=== PATIENT | male | born 1935 | race Caucasian/White ===

== ENCOUNTER 2021-03-24 08:07 | Inpatient (IN) | payer MEDICARE, OTHER ==
[2021-03-24 09:15] LABS: BASOPHIL 0.3 % (0-2); EOSINOPHIL 0 % (0-7); HCT 43.8 % (42.0-52.0); HGB 14.3 g/dl (13.2-18.0); LYMPHOCYTE 2.5 % (15-48); MCH 28.9 pg (25.0-31.0); MCHC 32.6 g/dL (32.0-36.0); MCV 88.5 fL (78.0-100.0); MONOCYTE 8.1 % (0-12); MPV 10.3 fL (6.0-9.5); NEUTROPHIL 88.4 % (41-80); NRBC 0; PLT 197 K/uL (150-400); RBC 4.95 M/uL (4.70-6.00); RDW 15.9 % (11.5-14.0); WBC 21.5 K/uL (4.0-10.5)
[2021-03-24 09:36] LABS: ALBUMIN 2.9 g/dL (3.4-5.0); BILIRUBIN - TOTAL 0.6 mg/dL (0.2-1.0); BUN/CREAT RATIO (CALC) 15.3 RATIO; CREATININE 5.04 mg/dL (0.67-1.17); GLOBULIN (CALCULATION) 4.5 g/dL; POTASSIUM 4.3 mmol/L (3.5-5.1); TOTAL PROTEIN 7.4 g/dL (6.4-8.2)
[2021-03-24 09:38] LABS: LACTIC ACID 2.2 mmol/L (0.4-1.9)
[2021-03-24 09:50] LABS: BILIRUBIN 1+ mg/dL (NEGATIVE); BLOOD 3+ Ery/uL (NEGATIVE); COLOR RED (YELLOW); GLUCOSE (U) NORMAL (NORMAL); LEUKOCYTES 3+ Leu/uL (NEGATIVE); NITRITE POSITIVE (NEGATIVE); PROTEIN 3+ mg/dL (NEGATIVE); UROBILINOGEN 0.2 mg/dL (0.2-1.0)
[2021-03-24 09:52] LABS: CLARITY CLOUDY (CLEAR)
[2021-03-24 10:04] LABS: BACTERIA 3+; URINARY RBC TNTC; URINARY WBC TNTC
[2021-03-24] MEDS ORDERED: LOPRESSOR50 MG PO (11:47)
[2021-03-24] MEDS ORDERED: KEFLEX250 MG PO (11:47)
[2021-03-24] MEDS ORDERED: PRILOSEC20 MG PO (11:48)
--- NOTE | 2021-03-24 14:09 | NUR ---
03/24/21 Mr. Aranda was unable to participate in an assessment. His daughter, DPO, Monica Sánchez ([phone]) reported the following: Mr. Aranda was in a NH in [place] for 100 days. Ms. Sánchez and her spouse were bringing Mr. Aranda from [place] to their home in [facility]). While driving to the airport, Mr. Aranda had a fall in a bathroom. He was taken to an ED and cleared to fly. They arrived in [place] on 03/22/21. Ms. Sánchez wishes for her father to return to her home. He is current with [facility]. Mr. Aranda has a rw, wc, s.chair, ripadmini, 3in1, and rails on the bed. - [facility] has been notified of the admission via [facility].
--- NOTE | 2021-03-26 12:29 | NUR ---
03/26/21 [facility] was informed on 03/25/21 of patient's transfer to [facility] on 03/24/21.
== END 2021-03-24 22:38 | disposition other institution (70) | DRG 698 ==
LOC: FER 08:07 → FTCU 10:06
PROVIDERS: Emergency Medicine; ADMIT Internal Medicine
DX: T83.511A Infection and inflammatory reaction due to indwelling urethral catheter, initial encounter (principal); A41.9 Sepsis, unspecified organism; N17.9 Acute kidney failure, unspecified; K56.609 Unspecified intestinal obstruction, unspecified as to partial versus complete obstruction; K56.7 Ileus, unspecified; T83.091A Other mechanical complication of indwelling urethral catheter, initial encounter; R33.9 Retention of urine, unspecified; E86.0 Dehydration; I10 Essential (primary) hypertension; Z20.822 Contact with and (suspected) exposure to COVID-19; Z85.51 Personal history of malignant neoplasm of bladder; Z80.3 Family history of malignant neoplasm of breast; Z79.899 Other long term (current) drug therapy; L89.326 Pressure-induced deep tissue damage of left buttock; L89.316 Pressure-induced deep tissue damage of right buttock; L89.891 Pressure ulcer of other site, stage 1
CPT/HCPCS: 36415; 70450; 71045; 71250; 80053; 81001; 83605; 85025; 87040; 87076; 87088; 87186; 93005; J0696; J2543; J7030; U0002